=== PATIENT | female | born 2000 | race Caucasian/White ===

== ENCOUNTER → 2020-04-29 21:13 | Observation (INO) ==
[2020-04-29 19:58] LABS: Bacteria,Urine Few per hpf (None-Few); Bilirubin,Urine Negative (Negative); Blood,Urine Negative (Negative); Clarity,Urine Clear (Clear); Color,Urine Light-Yellow (Yellow); Glucose,Urine (UA) Normal (Normal); Ketones,Urine Negative (Negative); Leukocyte Esterase,Urine Moderate (Negative); Mucus,Urine Few per lpf (None-Few); Nitrite,Urine Negative (Negative); Protein,Urine Trace mg/dL (Neg-Trace); RBC,Urine 0-3 per hpf (0-3); Specific Gravity,Urine 1.025 (1.010-1.025); Squamous Epithelial Cell,Urine Moderate per hpf (None-Few); Urobilinogen,Urine Normal (Normal); WBC,Urine 15-30 per hpf (0-3)
[2020-04-29 20:59] LABS: Candida DNA Not Detected (Not Detect); Gardnerella DNA Not Detected (Not Detect); Trichomonas DNA Not Detected (Not Detect)
[~2020-04-29 21:13] MED LIST: Ringers Solution, Lactated 1,000 ML IVC ONE
== END | disposition home or self-care (01) ==
LOC: 1NENULAB
PROVIDERS: ADMIT Obstetrics & Gynecology; ATTEND Obstetrics & Gynecology

== ENCOUNTER 2020-07-19 04:17 | Inpatient (IN) ==
[2020-07-19] MEDS ORDERED: Metoclopramide 10 MG/2 ML VIAL IVP PRN (04:21)
[2020-07-19] MEDS ORDERED: Famotidine 20 MG/2 ML VIAL IVP PRN (04:21)
[2020-07-19] MEDS ORDERED: Ondansetron 4 MG/2 ML VIAL IVP PRN (04:21)
[2020-07-19] MEDS ORDERED: *HR* FentaNYL (PF) 100 MCG/2 ML VIAL IVP PRN (04:21)
[2020-07-19] MEDS ORDERED: Lidocaine 1% 20 ML MDV INFILT PRN (04:21)
[2020-07-19] MEDS ORDERED: Naloxone 0.4 MG/ML INJ IVP PRN (04:21)
[2020-07-19] MEDS ORDERED: miSOPROStoL 25 MCG TABLET VG PRN (04:21)
[2020-07-19] MEDS ORDERED: Ringers Solution, Lactated 1,000 ML IVC SCH (04:30)
[2020-07-19 04:58] LABS: Basophils % 0.5 %; Hematocrit 27.1 % (35.3-44.9); Monocytes % 4.7 %; Nucleated Red Blood Cells 0.9 /100 WBC (0)
[2020-07-19 05:00] LABS: Basophils # 0.1 K/mcL (0.0-0.2); Hemoglobin 7.9 g/dL (11.5-15.4); Immature Granulocytes % 3.4 % (0-4); Lymphocytes # 2.3 K/mcL (0.6-4.6); Lymphocytes % 13.8 %; Mean Corpuscular HGB Conc 29.2 g/dL (31.6-35.5); Mean Corpuscular Hemoglobin 23.7 pg (28.0-33.3); Mean Corpuscular Volume 81.1 fL (83.0-100.0); Mean Platelet Volume 10.2 fL (9.4-12.4); Monocytes # 0.8 K/mcL (0.0-1.3); Neutrophils # 12.7 K/mcL (1.6-8.9); Platelet Count 255 K/mcL (140-400); Red Blood Count 3.34 M/mcL (3.82-4.97); Red Cell Distribution Width 21.5 % (11.5-14.5); Segmented Neutrophils % 77.6 %; White Blood Count 16.3 K/mcL (4.3-11.1)
[2020-07-19 05:07] LABS: Amphetamine Screen,Urine Negative ng/mL (Cutoff=1000); Barbiturate Screen,Urine Negative ng/mL (Cutoff=200); Benzodiazepines Screen,Urine Negative ng/mL (Cutoff=200); Cannabinoid Screen,Urine Negative ng/mL (Cutoff = 50); Cocaine Screen,Urine Negative ng/mL (Cutoff= 300); Opiate Screen,Urine Negative ng/mL (Cutoff=300); Phencyclidine Screen,Urine Negative ng/mL (Cutoff=25)
[2020-07-19] MEDS ORDERED: EPHEDrine 50 MG/ML VIAL IVP PRN (09:40)
[2020-07-19] MEDS ORDERED: Ropivacaine/PF 0.2% 20 ML VIAL EP ONE (09:40)
[2020-07-19] MEDS ORDERED: *HR* FentaNYL (PF) 100 MCG/2 ML VIAL EP ONE (09:40)
[2020-07-19] MEDS ORDERED: Epidural Premix (fent/bupiv) 110 ML EP SCH (09:45)
[2020-07-19] MEDS ORDERED: Oxytocin 20 units/ LR 1000 mL 20 UNIT/1,000 ML BAG IVC SCH (11:15)
[2020-07-19] MEDS ORDERED: *HR* Oxytocin 10 UNIT/ML VIAL IM ONE (11:21)
[2020-07-20] MEDS ORDERED: Measles/Mumps/Rubella Vacc 0.5 ML VIAL SQ PRN (00:21)
[2020-07-20] MEDS ORDERED: Oxytocin 20 units/ LR 1000 mL 20 UNIT/1,000 ML BAG IVC SCH (00:21)
[2020-07-20] MEDS ORDERED: Acetaminophen 325 MG TABLET PO PRN (00:21)
[2020-07-20] MEDS ORDERED: Rho Immune Globulin 1,500 UNIT SYRINGE IM PRN (00:21)
[2020-07-20] MEDS: Ibuprofen 600 MG TABLET PO PRN ×3 (00:30→20:40)
[2020-07-20 06:25] LABS: Basophils % 0.3 %; Monocytes % 3.7 %
[2020-07-20 06:27] LABS: Hematocrit 23.7 % (35.3-44.9); Hemoglobin 6.8 g/dL (11.5-15.4); Lymphocytes # 1.5 K/mcL (0.6-4.6); Lymphocytes % 9.1 %; Mean Corpuscular HGB Conc 28.7 g/dL (31.6-35.5); Mean Corpuscular Hemoglobin 24.2 pg (28.0-33.3); Mean Corpuscular Volume 84.3 fL (83.0-100.0); Mean Platelet Volume 10.5 fL (9.4-12.4); Monocytes # 0.6 K/mcL (0.0-1.3); Nucleated Red Blood Cells 0.2 /100 WBC (0); Platelet Count 191 K/mcL (140-400); Red Blood Count 2.81 M/mcL (3.82-4.97); Red Cell Distribution Width 22.6 % (11.5-14.5); Segmented Neutrophils % 85.9 %; White Blood Count 15.9 K/mcL (4.3-11.1)
[2020-07-20 06:29] LABS: Basophils # 0.1 K/mcL (0.0-0.2); Neutrophils # 13.7 K/mcL (1.6-8.9)
[2020-07-20 06:59] LABS: Anisocytosis 2+ (Not Present); Hypochromasia Present (Not Present); Macrocytosis Present (Not Present); Microcytosis Present (Not Present); Poikilocytosis 1+ (Not Present); Polychromasia 1+ (Not Present)
[2020-07-20 07:00] LABS: Platelet Estimate Normal (Normal)
[2020-07-20] MEDS ORDERED: 0.9 % Sodium Chloride 250 ML IVC SCH (07:30)
[2020-07-20] MEDS: Prenatal Vit/FA 1 EACH TABLET PO SCH (08:06)
[2020-07-20] MEDS ORDERED: NON-FORMULARY MEDICATION 1 EACH EACH (Pnv115/Iron Fumarate/Fa/Dss [Prenatal 19 Tablet] 1 M PO SCH (09:00)
[2020-07-21 06:36] LABS: Basophils # 0.1 K/mcL (0.0-0.2); Basophils % 0.5 %; Eosinophils % 0.1 %; Hematocrit 30.7 % (35.3-44.9); Immature Granulocytes % 1.1 % (0-4); Lymphocytes # 2.4 K/mcL (0.6-4.6); Lymphocytes % 15.3 %; Mean Corpuscular HGB Conc 30.3 g/dL (31.6-35.5); Mean Corpuscular Hemoglobin 26.8 pg (28.0-33.3); Mean Corpuscular Volume 88.5 fL (83.0-100.0); Mean Platelet Volume 10.7 fL (9.4-12.4); Monocytes # 0.6 K/mcL (0.0-1.3); Monocytes % 3.8 %; Neutrophils # 12.3 K/mcL (1.6-8.9); Nucleated Red Blood Cells 0.1 /100 WBC (0); Platelet Count 180 K/mcL (140-400); Red Blood Count 3.47 M/mcL (3.82-4.97); Red Cell Distribution Width 23.5 % (11.5-14.5); Segmented Neutrophils % 79.2 %; White Blood Count 15.5 K/mcL (4.3-11.1)
[2020-07-21 06:37] LABS: Hemoglobin 9.3 g/dL (11.5-15.4)
[2020-07-21 06:54] LABS: Anisocytosis 2+ (Not Present); Hypochromasia Present (Not Present); Macrocytosis Present (Not Present); Platelet Estimate Normal (Normal)
[2020-07-21] MEDS: Ibuprofen 600 MG TABLET PO PRN (07:28)
[2020-07-21] MEDS: Prenatal Vit/FA 1 EACH TABLET PO SCH (07:28)
[2020-07-21 07:44] VITALS: BP 108/68
== END 2020-07-21 11:28 | disposition home or self-care (01) | DRG 807 ==
LOC: 1NENULAB 04:17 → 1NENUOBS 23:47
PROVIDERS: ADMIT Student in an Organized Health Care Education/Training Program; ATTEND Student in an Organized Health Care Education/Training Program